=== PATIENT | male | born 1995 | race Caucasian/White ===

== ENCOUNTER 2016-07-31 11:11 | Emergency (ER) | payer MEDICAID ==
[~2016-07-31] VITALS: Ht 160 cm; Wt 90.7 kg
[2016-07-31 11:27] VITALS: BP 117/68; PULSE 70; RESP 16; TEMP 98.5; O2SAT 99
--- NOTE | 2016-07-31 11:56 | NUR ---
BROUGHT BACK TO BED #8 AND WILL ASSUME CARE
--- NOTE | 2016-07-31 12:00 | NUR ---
Pt here in ED for c/o left big toe pain from ingrown toe nail for one week. Pt denied pain at moment, states pain is 10/10 if weight bearing. Pt states he cuts the corners of his nails. Pt educated to cut his nails straight to prevent ingrown toe nail. Pt verbalized understanding. No redness, swelling, or drainage noted to area.
--- NOTE | 2016-07-31 12:02 | NUR ---
Dr. Palmer at bedside to assess pt.
[2016-07-31 13:00] VITALS: BP 120/70; PULSE 68; RESP 17; TEMP 98.7; O2SAT 99
--- NOTE | 2016-07-31 13:00 | NUR ---
Patient given written and verbal discharge instructions and verbalizes understanding. ER MD discussed with patient the results and treatment provided. Patient in stable condition. ID arm band removed. Rx ofmotrin 600mg given. Opportunity for questions provided and answered.
== END 2016-07-31 13:00 | disposition home or self-care (01) ==
LOC: SED 11:11
DX: L60.0 Ingrowing nail (principal)
CPT/HCPCS: 99283

== ENCOUNTER 2018-12-05 23:06 | Emergency (ER) | payer MEDICAID ==
[~2018-12-05] VITALS: Ht 165.1 cm; Wt 78.0 kg
[2018-12-05 23:23] VITALS: BP_SYST 123
[2018-12-06] MEDS ORDERED: KETOROLAC TROMETHAMINE 30 MG VIAL IVP ONE
[2018-12-06] MEDS ORDERED: NACL 0.9% 1,000 ML IV ONE
[2018-12-06] MEDS ORDERED: ONDANSETRON HCL 4 MG/2 ML VIAL IVP ONE
[2018-12-06 02:35] VITALS: BP_SYST 117
== END 2018-12-06 02:35 | disposition home or self-care (01) ==
LOC: SED 23:06
DX: T62.8X1A Toxic effect of other specified noxious substances eaten as food, accidental (unintentional), initial encounter (principal); N13.2 Hydronephrosis with renal and ureteral calculous obstruction; Y92.89 Other specified places as the place of occurrence of the external cause
CPT/HCPCS: 74176; 96361; 96374; 96375; 99284; J1885; J2405; J7030